=== PATIENT | female | born 1960 | race Caucasian/White ===

== ENCOUNTER 2023-08-26 11:06 | Inpatient (IN) | payer MEDICAID, OTHER ==
[~2023-08-26] VITALS: Ht 167.6 cm; Wt 69.9 kg
[2023-08-26 08:00] VITALS: BP 128/66; PULSE 87; RESP 20; TEMP 98; O2SAT 98
[~2023-08-26 11:06] MED LIST: ACET-8905 PO; CIPR500T4 PO; HYDR-4004 PO; METO25TA14 PO; PANT20EC PO
[2023-08-26 11:16] VITALS: BP 146/119; PULSE 95; RESP 20; TEMP 97.8; O2SAT 97
[2023-08-26] MEDS: ONDANSETRON 4 MG/2 ML VIAL IVP ONE (13:27)
[2023-08-26] MEDS: NACL 0.9% 1,000 ML IV SCH (13:27)
[2023-08-26] MEDS: MORPHINE SULFATE 4 MG/ML SYR IVP ONE ×2 (13:31→16:00)
[2023-08-26 13:41] LABS: BASOPHILS # (AUTO) 0.1 K/uL (0.00-0.22); EOSINOPHILS # (AUTO) 0.1 K/uL (0-0.4); EOSINOPHILS % (AUTO) 2.7 % (0.0-4.0); HEMATOCRIT 38.8 % (36-48); HEMOGLOBIN 13.3 g/dL (12.0-16.0); LYMPHOCYTES # (AUTO) 1.2 K/uL (2.5-16.5); LYMPHOCYTES % (AUTO) 23.2 % (20.5-51.1); MEAN CORPUSCULAR HEMOGLOBIN 32 pg (27-31); MEAN CORPUSCULAR HGB CONC 34 g/dL (33-37); MEAN CORPUSCULAR VOLUME 93.6 fL (80-94); MONOCYTES # (AUTO) 0.6 K/uL (0.8-1.0); MONOCYTES % (AUTO) 10.8 % (1.7-9.3); NEUTROPHILS # (AUTO) 3.3 K/uL (1.8-7.7); NEUTROPHILS % (AUTO) 62.3 % (42.2-75.2); PLATELET COUNT (AUTO) 295 K/uL (140-450); RED BLOOD CELL COUNT(AUTO) 4.14 MIL/uL (4.20-5.40); RED CELL DISTRIBUTION WIDTH 13.5 % (11.6-13.7); WHITE BLOOD COUNT (AUTO) 5.3 K/uL (4.8-10.8)
[2023-08-26 13:47] LABS: ANION GAP 16.3 (8-16); CALCIUM 8.9 mg/dL (8.5-10.1); CARBON DIOXIDE 25.3 mmol/L (21-32); CREATININE 1.4 mg/dL (0.6-1.3)
[2023-08-26 13:49] LABS: POTASSIUM 2.6 mmol/L (3.5-5.1)
[2023-08-26] MEDS: MAG SULF 2000 MG/WATER PREMIX 50 ML IV ONE (14:00)
[2023-08-26] MEDS: KCL 20 MEQ IN 100 mL PREMIX 100 ML IV ONE (14:38)
[2023-08-26] MEDS ORDERED: NACL 0.9% 1,000 ML IV SCH (16:25)
[2023-08-26] MEDS ORDERED: ACETAMINOPHEN 325 MG TAB PO PRN (16:25)
[2023-08-26] MEDS ORDERED: HYDROcodone/APAP 5/325 MG 1 TAB TAB PO PRN (16:25)
[2023-08-26] MEDS: DEXT 5% / NACL 0.45% 1,000 ML IV SCH (17:40)
[2023-08-26 20:00] VITALS: BP 130/70; PULSE 84; PULSE 85; RESP 18; RESP 20; TEMP 98; O2SAT 96
[2023-08-26] MEDS: MORPHINE SULFATE 4 MG/ML SYR IVP PRN (22:58)
[2023-08-27 04:00] VITALS: BP 128/66; PULSE 87; RESP 20; TEMP 98.3; O2SAT 96
[2023-08-27] MEDS: ONDANSETRON 4 MG/2 ML VIAL IVP PRN (04:26)
[2023-08-27 06:22] LABS: BASOPHILS # (AUTO) 0.1 K/uL (0.00-0.22); BASOPHILS % (AUTO) 1.1 % (0.0-2.0); EOSINOPHILS # (AUTO) 0.3 K/uL (0-0.4); EOSINOPHILS % (AUTO) 6.1 % (0.0-4.0); HEMATOCRIT 32.5 % (36-48); HEMOGLOBIN 11.1 g/dL (12.0-16.0); LYMPHOCYTES # (AUTO) 1.4 K/uL (2.5-16.5); LYMPHOCYTES % (AUTO) 28.7 % (20.5-51.1); MEAN CORPUSCULAR HEMOGLOBIN 32 pg (27-31); MEAN CORPUSCULAR HGB CONC 34 g/dL (33-37); MEAN CORPUSCULAR VOLUME 94.2 fL (80-94); MONOCYTES # (AUTO) 0.6 K/uL (0.8-1.0); MONOCYTES % (AUTO) 12.9 % (1.7-9.3); NEUTROPHILS # (AUTO) 2.4 K/uL (1.8-7.7); NEUTROPHILS % (AUTO) 51.2 % (42.2-75.2); PLATELET COUNT (AUTO) 226 K/uL (140-450); RED BLOOD CELL COUNT(AUTO) 3.45 MIL/uL (4.20-5.40); RED CELL DISTRIBUTION WIDTH 13.6 % (11.6-13.7); WHITE BLOOD COUNT (AUTO) 4.8 K/uL (4.8-10.8)
[2023-08-27 06:37] LABS: APPEARANCE,URINE CLOUDY (CLEAR); BILIRUBIN,URINE NEGATIVE (NEGATIVE); BLOOD, URINE 1+ (NEGATIVE); COLOR,URINE YELLOW (YELLOW); LEUKOCYTE ESTERASE ,URINE NEGATIVE (NEGATIVE); NITRITE, URINE POSITIVE (NEGATIVE); PH,URINE 6.5 (5.0-9.0); PROTEIN,URINE NEGATIVE (NEGATIVE); UGLUCOSE NEGATIVE (NEGATIVE); UROBILINOGEN,URINE 0.2 EU/dL (0.2 - 1)
[2023-08-27 06:44] LABS: ALBUMIN 3.4 g/dL (3.4-5.0); ANION GAP 13.2 (8-16); CALCIUM 8.1 mg/dL (8.5-10.1); CARBON DIOXIDE 24.8 mmol/L (21-32); CREATININE 1.1 mg/dL (0.6-1.3); MAGNESIUM 1.6 mg/dL (1.8-2.4); TOTAL BILIRUBIN 0.2 mg/dL (0.0-1.0); TOTAL PROTEIN, SERUM 7.6 g/dL (6.4-8.2)
[2023-08-27 06:57] LABS: BACTERIA,URINE >30 (MANY) /HPF (None Seen); SQUAMOUS EPITHELIAL CELL,UR 0-3 (FEW) /LPF (0-3 (FEW))
[2023-08-27 08:00] VITALS: BP 137/71; PULSE 70; RESP 18; TEMP 98; O2SAT 99
[2023-08-27] MEDS: MAGNESIUM OXIDE 400 MG TAB PO PRN (09:21)
[2023-08-27] MEDS: amLODIPine 5 MG TAB PO SCH (09:21)
[2023-08-27] MEDS: KCL 20 MEQ IN 100 mL PREMIX 200 ML IV PRN (09:38)
[2023-08-27] MEDS: POTASSIUM CHLORIDE 10 MEQ TABER PO SCH (13:43)
[2023-08-27 16:00] VITALS: BP 134/77; PULSE 78; RESP 18; TEMP 97.6; O2SAT 99
[2023-08-28] VITALS: BP 146/80; PULSE 89; RESP 18; TEMP 96.2; O2SAT 97
[2023-08-28] MEDS: LORazepam 1 MG TAB PO PRN (02:34)
[2023-08-28 03:34] VITALS: BP 117/60; PULSE 85; RESP 18; O2SAT 85
[2023-08-28 06:37] LABS: BASOPHILS % (AUTO) 0.8 % (0.0-2.0); EOSINOPHILS # (AUTO) 0.2 K/uL (0-0.4); EOSINOPHILS % (AUTO) 3.3 % (0.0-4.0); HEMATOCRIT 33.4 % (36-48); HEMOGLOBIN 11.4 g/dL (12.0-16.0); LYMPHOCYTES # (AUTO) 1.6 K/uL (2.5-16.5); LYMPHOCYTES % (AUTO) 28.9 % (20.5-51.1); MEAN CORPUSCULAR HEMOGLOBIN 32 pg (27-31); MEAN CORPUSCULAR HGB CONC 34 g/dL (33-37); MONOCYTES # (AUTO) 0.6 K/uL (0.8-1.0); MONOCYTES % (AUTO) 10.7 % (1.7-9.3); NEUTROPHILS # (AUTO) 3.1 K/uL (1.8-7.7); NEUTROPHILS % (AUTO) 56.3 % (42.2-75.2); PLATELET COUNT (AUTO) 218 K/uL (140-450); RED BLOOD CELL COUNT(AUTO) 3.56 MIL/uL (4.20-5.40); RED CELL DISTRIBUTION WIDTH 13.6 % (11.6-13.7); WHITE BLOOD COUNT (AUTO) 5.5 K/uL (4.8-10.8)
[2023-08-28 06:58] LABS: ALBUMIN 3.3 g/dL (3.4-5.0); ANION GAP 12.6 (8-16); CALCIUM 8.3 mg/dL (8.5-10.1); CARBON DIOXIDE 25.6 mmol/L (21-32); CREATININE 1.1 mg/dL (0.6-1.3); MAGNESIUM 1.4 mg/dL (1.8-2.4); POTASSIUM 3.2 mmol/L (3.5-5.1); TOTAL BILIRUBIN 0.2 mg/dL (0.0-1.0); TOTAL PROTEIN, SERUM 7.5 g/dL (6.4-8.2)
[2023-08-28 08:00] VITALS: BP 102/56; PULSE 76; RESP 18; TEMP 97.6; O2SAT 76
[2023-08-28] MEDS: POTASSIUM CHLORIDE 10 MEQ TABER PO PRN (10:24)
[2023-08-28] MEDS: LIDOCAINE 5% 1 EA PATCH TP SCH (10:29)
[2023-08-28] MEDS: MAG SULF 2000 MG/WATER PREMIX 50 ML IV PRN (12:28)
[2023-08-28 16:00] VITALS: BP 119/68; PULSE 76; RESP 18; TEMP 97; O2SAT 80
[2023-08-28 20:00] VITALS: BP 115/62; PULSE 81; RESP 20; TEMP 97.2; O2SAT 80
[2023-08-29 05:51] LABS: BASOPHILS % (AUTO) 0.7 % (0.0-2.0); EOSINOPHILS # (AUTO) 0.5 K/uL (0-0.4); EOSINOPHILS % (AUTO) 9.6 % (0.0-4.0); HEMATOCRIT 33.8 % (36-48); HEMOGLOBIN 11.8 g/dL (12.0-16.0); LYMPHOCYTES # (AUTO) 1.5 K/uL (2.5-16.5); LYMPHOCYTES % (AUTO) 30.9 % (20.5-51.1); MEAN CORPUSCULAR HEMOGLOBIN 33 pg (27-31); MEAN CORPUSCULAR HGB CONC 35 g/dL (33-37); MEAN CORPUSCULAR VOLUME 93.2 fL (80-94); MONOCYTES # (AUTO) 0.5 K/uL (0.8-1.0); MONOCYTES % (AUTO) 10.2 % (1.7-9.3); NEUTROPHILS # (AUTO) 2.4 K/uL (1.8-7.7); NEUTROPHILS % (AUTO) 48.6 % (42.2-75.2); PLATELET COUNT (AUTO) 223 K/uL (140-450); RED BLOOD CELL COUNT(AUTO) 3.63 MIL/uL (4.20-5.40); RED CELL DISTRIBUTION WIDTH 13.7 % (11.6-13.7)
[2023-08-29 06:12] LABS: ALBUMIN 3.4 g/dL (3.4-5.0); ANION GAP 10.1 (8-16); CALCIUM 8.6 mg/dL (8.5-10.1); CREATININE 0.9 mg/dL (0.6-1.3); MAGNESIUM 1.4 mg/dL (1.8-2.4); POTASSIUM 3.1 mmol/L (3.5-5.1); TOTAL BILIRUBIN 0.2 mg/dL (0.0-1.0); TOTAL PROTEIN, SERUM 7.8 g/dL (6.4-8.2)
[2023-08-29 08:00] VITALS: BP 118/70; PULSE 74; RESP 18; TEMP 97.5; O2SAT 74; O2SAT 99
[2023-08-29] MEDS ORDERED: ACET-8905 PO (11:06)
[2023-08-29] MEDS: MAG SULF 2000 MG/WATER PREMIX 50 ML IV SCH (11:29)
[2023-08-29] MEDS: POTASSIUM CHLORIDE 10 MEQ TABER PO SCH (13:00)
== END 2023-08-29 16:40 | disposition home or self-care (01) | DRG 469 ==
LOC: MED 11:06 → MMU 16:27
PROVIDERS: ADMIT Internal Medicine; ATTEND Internal Medicine
DX: N17.9 Acute kidney failure, unspecified (principal); E44.1 Mild protein-calorie malnutrition; R64 Cachexia; E87.6 Hypokalemia; M54.9 Dorsalgia, unspecified; R11.2 Nausea with vomiting, unspecified; N39.0 Urinary tract infection, site not specified; Z85.3 Personal history of malignant neoplasm of breast; Z88.8 Allergy status to other drugs, medicaments and biological substances; Z79.899 Other long term (current) drug therapy; Z56.0 Unemployment, unspecified; Z68.29 Body mass index [BMI] 29.0-29.9, adult
CPT/HCPCS: 36415; 80048; 80053; 81001; 83735; 85025; 87081; 87086; 96361; 96374; 96375; 96376; 97116; 97163-GP; 99285; J0696; J1644; J2270; J2405; J3475; J3480; J7060